=== PATIENT | female | born 1960 ===

== ENCOUNTER 2017-12-04 21:56 | Emergency (ER) | payer SELFPAY ==
[~2017-12-04] VITALS: Ht 152.4 cm; Wt 88.6 kg
[2017-12-04] MEDS ORDERED: ASPI-556 PO (22:08)
[2017-12-04] MEDS ORDERED: MULT1CAP32 PO (22:08)
[2017-12-04] MEDS ORDERED: CALC-877 PO (22:08)
[2017-12-04] MEDS ORDERED: OMEG-135 PO (22:08)
[2017-12-04] MEDS ORDERED: [UNRECOGNIZED DRUG - OTHER] PO (22:08)
[2017-12-04 23:22] LABS: APPEARANCE,URINE CLEAR (CLEAR); BILIRUBIN,URINE NEGATIVE (NEGATIVE); GLUCOSE, URINE (UA) NEGATIVE (NEGATIVE); KETONES,URINE NEGATIVE (NEGATIVE); LEUKOCYTE ESTERASE ,URINE NEGATIVE (NEGATIVE); NITRATE,URINE NEGATIVE (NEGATIVE); OCCULT BLOOD,URINE NEGATIVE (NEGATIVE); PROTEIN,URINE NEGATIVE (NEGATIVE); UROBILINOGEN,URINE 0.2 mg/dL (<=1.0)
[2017-12-04 23:27] LABS: RBC,URINE None Seen /HPF (0-2); WBC,URINE 0-2 /HPF (0-5)
[2017-12-04 23:28] LABS: BACTERIA,URINE None Seen /HPF (None Seen); SQUAMOUS EPITHELIAL CELL,UR Rare /LPF (None Seen)
[2017-12-05 01:45] VITALS: BP 196/93
== END 2017-12-04 23:43 | disposition home or self-care (01) ==
LOC: EMS 21:57
DX: I10 Essential (primary) hypertension (principal); R51 Headache; Z79.82 Long term (current) use of aspirin
CPT/HCPCS: 99283